=== PATIENT | male | born 1975 | race Caucasian/White ===

== ENCOUNTER → 2021-04-01 | Outpatient (CLI) | payer OTHER | END | disposition home or self-care (01) | LOC: LAB SHORT 13:48 → LAB 13:48 | DX: R31.9 Hematuria, unspecified (principal) | CPT/HCPCS: 87086 ==

== ENCOUNTER → 2022-12-28 | Outpatient (CLI) | payer OTHER ==
[2022-12-28 13:14] LABS: Microalb/Creat Ratio UR, Rand 12.66 mg/g (0.000-30.000); Microalbumin, Random Urine 25.7 mg/L (0.000-20.000)
== END | disposition home or self-care (01) ==
LOC: LAB 10:08 → LAB SHORT 10:08
PROVIDERS: Hospitalist
DX: I10 Essential (primary) hypertension (principal)
CPT/HCPCS: 82043; 82570